=== PATIENT | male | born 1965 | race African-American/Black ===

== ENCOUNTER 2017-09-02 09:04 | Outpatient (CLI) | payer OTHER ==
--- NOTE | 2017-09-02 11:29 | MRI ---
MRI LUMBAR SPINE WITH AND WITHOUT CONTRAST: Technique: Multiplanar, multisequential imaging lumbar spine obtained. History: Back pain, bilateral lower extremity numbness and tingling. Lumbar radiculopathy. Comparison: MRI of lumbar spine 11-15-14, CT lumbar spine performed post myelogram 02-13-16. FINDINGS: There is a transitional vertebrae which has been previously described. This was labelled L5 on the p rior CT. Pedicles screws were in place at L4 and L5 on that exam. Pedicles screws have been removed since the prior exam. Lumbar vertebrae continue to maintain normal height and alignment. Disc spaces are preserved with mild degenerative disc signal seen at the L3-4 level. No evidence of significant disc bulge or protrusion at L1-2 or L2-3. No central canal or for aminal stenosis at these levels. L3-4: Minimal disc bulge. Mild facet arthrosis and hypertrophy. No significant central canal or fora pepe stenosis. L4-5: Minimal listhesis with disc bulge flattening the anterior thecal sac. Facet hypertrophy. No si gnificant central canal stenosis. There is bilateral foraminal stenosis secondary to hypertrophic ch gigi. L5-S1: No significant disc bulge or protrusion. No central canal or foraminal stenosis. IMPRESSION: Pedicle screws have been removed since the prior CT. Mild bulge at L3-4 and L4-5. Bilateral foramina l stenosis at L4-5 due to hypertrophic change. POS: ROMA
== END 2017-09-02 09:05 | disposition home or self-care (01) ==
LOC: TBSIIMAG 09:04
PROVIDERS: ATTEND Neurological Surgery
DX: M54.16 Radiculopathy, lumbar region (principal); M48.061 Spinal stenosis, lumbar region without neurogenic claudication
CPT/HCPCS: 72158

== ENCOUNTER 2018-08-11 14:46 | Outpatient (CLI) | payer OTHER ==
--- NOTE | 2018-08-11 18:10 | RAD ---
LEFT HIP 2 VIEWS: Date 08/11/18 HISTORY: Pain. Cramping. COMPARISON: None. FINDINGS: Visualized portion of the left thigh is unremarkable. No acute fracture or malalignment. IMPRESSION: No acute fracture or malalignment. POS: C
--- NOTE | 2018-08-11 18:17 | RAD ---
RIGHT HIP TWO VIEWS: History: Pain. M54.5 Comparison: None. FINDINGS: No fracture. No malalignment. Obturator rings are intact. There is ossification along the right iliac wing. IMPRESSION: No acute abnormality. POS: C
== END 2018-08-11 14:47 | disposition home or self-care (01) ==
LOC: TBSIIMAG 14:46
PROVIDERS: ATTEND Neurological Surgery
DX: M54.5 Low back pain (principal)

== ENCOUNTER 2020-02-01 09:05 | Outpatient (CLI) | payer OTHER ==
--- NOTE | 2020-02-01 12:19 | MRI ---
MRI OF THE LUMBAR SPINE WITH AND WITHOUT CONTRAST: INDICATION: Lumbar radiculopathy. Bilateral leg pain. History of prior lumbar surgery. COMPARISON: Comparison is made to MRI lumbar spine dated 09/02/2017. FINDINGS: Vertebral bodies maintain height. 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 There is small disk space at the T11-T12 level. L5 is transitional. Disk space narrowing at L5-S1 is again noted and stable. There is a grade I anterolisthesis at L4-5 seen today which has progressed since the prior study. Th ere is a diffuse bulge at L4-5 mildly flattening the anterior thecal sac. There is prominent facet h ypertrophy at L4-5. There is posterior epidural fat throughout the lumbar spine but most prominent a t L3-4 and L4-5 consistent with mild epidural lipomatosis. This is especially prominent in the anter ior spinal canal on the left at L4. This is stable in appearance. Mild central canal stenosis at L4-5. There is bilateral foraminal stenosis at L4-5 which was present previously but appears slightly more pronounced today due to the increased anterolisthesis. L1-2: No significant disk bulge or protrusion. No central canal or foraminal stenosis. L2-3: No disk bulge or protrusion. Mild facet hypertrophy. No central canal or foraminal stenosis. L3-4: No significant disk bulge. Mild to moderate facet hypertrophy. No central canal or foraminal stenosis. 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 Recommend correlation with history of prior nephrectomy. IMPRESSION: Significant findings at L4-5 as described above. L5 is transitional as noted. There is increased an terolisthesis at L4-5 with broad-based disk bulge and mild foraminal stenosis at this level as descri bed above. POS: AGW
[2020-02-01] MEDS ORDERED: Magnevist 469MG/ML 20 ML VIAL ONE (13:51)
== END 2020-02-01 09:06 | disposition home or self-care (01) ==
LOC: TBSIIMAG 09:05
PROVIDERS: ATTEND Neurological Surgery
DX: M51.16 Intervertebral disc disorders with radiculopathy, lumbar region (principal); M48.061 Spinal stenosis, lumbar region without neurogenic claudication; M43.16 Spondylolisthesis, lumbar region
CPT/HCPCS: 72158; A9579

== ENCOUNTER 2020-05-01 06:51 | Outpatient (CLI) | payer OTHER ==
[2020-05-01 12:26] LABS: Anion Gap 15 mmol/L (10-20); BUN (Urea Nitrogen) 13 mg/dL (8.4-25.7); Calc. Creatinine Clearance 0 mL/min (70-130); Calcium 9.5 mg/dL (7.8-10.44); Carbon Dioxide 21 mmol/L (22-29); Chloride 107 mmol/L (98-107); Estimated GFR-MDRD 77; Glucose 107 mg/dL (70-105); Potassium 4.3 mmol/L (3.5-5.1); Sodium 139 mmol/L (136-145)
[2020-05-02 12:09] LABS: SARS-CoV-2 MS2 Positive; SARS-CoV-2 N Gene Negative; SARS-CoV-2 S Gene Negative; SARS-CoV-2 orf1ab Negative
== END 2020-05-01 06:52 | disposition home or self-care (01) ==
LOC: LABBT 06:51
PROVIDERS: ATTEND Neurological Surgery
DX: Z01.812 Encounter for preprocedural laboratory examination (principal); Z11.59 Encounter for screening for other viral diseases; M43.16 Spondylolisthesis, lumbar region
CPT/HCPCS: 80048; 87635; U0003

== ENCOUNTER 2020-05-03 06:18 | Day surgery (SDC) | payer OTHER ==
[2020-04-29 14:08] VITALS: BMI 31.1
--- NOTE | 2020-05-02 13:19 | HP ---
HISTORY OF PRESENT ILLNESS: Mr. Serna is a 55-year-old man, known to us for prior back surgeries and evaluations of ongoing back pain with lumbar radiculopathies, who more recently reported a CT and MRI scan, which revealed progressive spondylolisthesis of L4 upon L5 paired with severe pain that radiated in a fashion that best fits in L4 pattern with some components of L5. He has treated this exhaustively with medications and injections with Dr. Bunch as well as physical therapy in the past. None of these things were provided him any substantial relief. He is here now to discuss potential operative management. PAST MEDICAL HISTORY: Includes neuropathy. PAST SURGICAL HISTORY: Multiple lumbar spinal surgeries including fusion and hardware removal. Examination deferred for [facility] telehealth visit. ASSESSMENT: Lumbar spondylolisthesis, lumbar radiculopathy, and degenerative disk disease. PLAN: Dr. Pérez met with the patient, reviewed his imaging, and advocated for reoperation, instrumentation and fusion at L4-5. He explained to the patient the risks, benefits, and alternatives to the procedure. The patient expressed understanding and elected to move forward with surgery as discussed. I do believe that the patient is mentally competent and capable of making medical decisions for himself. We will move forward with surgery as planned. Job ID: [id number]
[2020-05-03] MEDS ORDERED: Bupivacaine PF 0.5% 30 ML VIAL ONE (09:32)
[2020-05-03] MEDS ORDERED: Thrombin 5000 UNITS/5 ML VIAL ONE (09:32)
[2020-05-03] MEDS ORDERED: EPINEPHrine 1 MG/ML AMP ONE (09:32)
[2020-05-03] MEDS ORDERED: Clindamycin/D5W 900 mg/50 ml Premix Bag ONE (09:37)
[2020-05-03] MEDS ORDERED: Levofloxacin 500 mg/D5W 100 ml Premix Bag ONE (09:37)
[2020-05-03] MEDS ORDERED: Fentanyl 100 MCG/2 ML VIAL ONE (10:17)
== END 2020-05-03 11:04 | disposition home or self-care (01) ==
LOC: SDC 06:18
PROVIDERS: ATTEND Neurological Surgery
DX: M43.16 Spondylolisthesis, lumbar region (principal); M51.16 Intervertebral disc disorders with radiculopathy, lumbar region; G62.9 Polyneuropathy, unspecified; I10 Essential (primary) hypertension; E78.5 Hyperlipidemia, unspecified; K21.9 Gastro-esophageal reflux disease without esophagitis; M19.90 Unspecified osteoarthritis, unspecified site; F17.210 Nicotine dependence, cigarettes, uncomplicated; J45.909 Unspecified asthma, uncomplicated; Z53.8 Procedure and treatment not carried out for other reasons; Z85.528 Personal history of other malignant neoplasm of kidney; Z79.52 Long term (current) use of systemic steroids; Z79.82 Long term (current) use of aspirin; Z79.899 Other long term (current) drug therapy; Z88.0 Allergy status to penicillin; Z88.1 Allergy status to other antibiotic agents; Z88.6 Allergy status to analgesic agent; Z91.041 Radiographic dye allergy status; Z90.5 Acquired absence of kidney; Z98.1 Arthrodesis status
CPT/HCPCS: 93005; 93010; C1713; J0171; J0690; J1956; J3010; J3490; S0020

== ENCOUNTER 2021-07-18 10:49 | Outpatient (CLI) | payer OTHER ==
[2021-07-18 13:28] LABS: Hemoglobin 12.4 g/dL (13.5-17.5); Mean Corpuscular HGB CONC 32.3 g/dL (32.0-36.0); Mean Corpuscular Hemoglobin 30.5 pg (27.0-33.0); Mean Corpuscular Volume 94.6 fl (81.2-95.1); Mean Platelet Volume 10.6 fl (7.4-10.4); Platelet Count 236 10x3/uL (150-450); RBC Distribution Width 16.1 % (11.5-14.5); Red Blood Cell (RBC) Count 4.06 10x6/uL (4.32-5.72); White Blood Cell (WBC) Count 14.1 10x3/uL (3.5-10.5)
[2021-07-18 13:35] LABS: Anion Gap 15 mmol/L (10-20); BUN (Urea Nitrogen) 13 mg/dL (8.4-25.7); Calc. Creatinine Clearance 0 mL/min (70-130); Calcium 10.1 mg/dL (7.8-10.44); Carbon Dioxide 19 mmol/L (22-29); Chloride 111 mmol/L (98-107); Glucose 98 mg/dL (70-105); Potassium 5.1 mmol/L (3.5-5.1); Sodium 140 mmol/L (136-145)
[2021-07-20 00:14] LABS: SARS-CoV-2 PCR by NAA Not Detected (NotDetected)
== END 2021-07-18 10:50 | disposition home or self-care (01) ==
LOC: LABBT 10:49
PROVIDERS: ATTEND Neurological Surgery
DX: Z01.818 Encounter for other preprocedural examination (principal); Z20.822 Contact with and (suspected) exposure to COVID-19
CPT/HCPCS: 80048; 85027; 93005; 93010; U0003; U0005

== ENCOUNTER 2021-07-23 07:25 | Day surgery (SDC) | payer OTHER ==
[2021-07-22 10:54] VITALS: BMI 33.1
[2021-07-23] MEDS ORDERED: Bupivacaine PF 0.5% 30 ML VIAL ONE (08:34)
[2021-07-23] MEDS ORDERED: EPINEPHrine 1 MG/ML AMP ONE (08:34)
[2021-07-23] MEDS ORDERED: HYDROmorphone 0.5 MG/0.5 ML SYRINGE ONE (08:45)
[2021-07-23] MEDS ORDERED: Vancomycin 1.5 GRAM/300 ML BAG 1.5 GM in Premix Bag 1 BAG IVPB SCH (08:45)
[2021-07-23] MEDS ORDERED: Fentanyl 100 MCG/2 ML VIAL ONE ×2 (08:45→09:02)
[2021-07-23] MEDS ORDERED: Midazolam HCl 2 mg/2 ml Vial ONE (08:49)
== END 2021-07-23 10:00 | disposition home or self-care (01) ==
LOC: SDC 07:25
PROVIDERS: ATTEND Neurological Surgery
DX: M43.16 Spondylolisthesis, lumbar region (principal); E78.5 Hyperlipidemia, unspecified; G89.29 Other chronic pain; M19.90 Unspecified osteoarthritis, unspecified site; J45.909 Unspecified asthma, uncomplicated; I25.10 Atherosclerotic heart disease of native coronary artery without angina pectoris; I10 Essential (primary) hypertension; Z53.9 Procedure and treatment not carried out, unspecified reason; Z79.82 Long term (current) use of aspirin; Z79.84 Long term (current) use of oral hypoglycemic drugs; Z88.0 Allergy status to penicillin; Z88.1 Allergy status to other antibiotic agents; Z88.2 Allergy status to sulfonamides; Z88.6 Allergy status to analgesic agent; Z91.041 Radiographic dye allergy status; Z98.1 Arthrodesis status
CPT/HCPCS: J0171; J1170; J2250; J3010; J3370; S0020

== ENCOUNTER → 2021-07-25 | Day surgery (SDC) | payer OTHER ==
[~2021-07-25] MED LIST: Bupivacaine PF 0.5% 30 ML VIAL ONE; EPINEPHrine 1 MG/ML AMP ONE; Fentanyl 100 MCG/2 ML VIAL ONE; HYDROcodone/Acetaminophen 5/325 mg Tablet ONE; Levofloxacin 500 mg/D5W 100 ml Premix Bag ONE; Lidocaine 1% PF 5 ML VIAL ONE; Midazolam HCl 2 mg/2 ml Vial ONE; PHENYLEPHRINE-NS 100 MCG/ML 10 ML SYRINGE ONE; PROPOFOL 200 MG/20 ML VIAL ONE; Phenylephrine 10 MG/ML VIAL ONE; Rocuronium Bromide 10 MG/ML (10ML VIAL) ONE; SUGAMMADEX SODIUM 200 MG/2 ML VIAL ONE; Tamsulosin HCl 0.4 MG CAP ONE
== END ==
LOC: SDC 06:31
PROVIDERS: ATTEND Neurological Surgery
PROC: 0SG0071 Fusion of Lumbar Vertebral Joint with Autologous Tissue Substitute, Posterior Approach, Posterior Column, Open Approach (ICD-10-PCS; principal; 2021-07-25)
DX: M54.16 Radiculopathy, lumbar region (principal); M53.2X6 Spinal instabilities, lumbar region; M43.16 Spondylolisthesis, lumbar region; E78.5 Hyperlipidemia, unspecified; G89.29 Other chronic pain; M19.90 Unspecified osteoarthritis, unspecified site; J45.909 Unspecified asthma, uncomplicated; I25.10 Atherosclerotic heart disease of native coronary artery without angina pectoris; I10 Essential (primary) hypertension; Z79.84 Long term (current) use of oral hypoglycemic drugs; Z88.0 Allergy status to penicillin; Z88.1 Allergy status to other antibiotic agents; Z88.2 Allergy status to sulfonamides; Z88.8 Allergy status to other drugs, medicaments and biological substances; Z91.041 Radiographic dye allergy status; Z98.1 Arthrodesis status
CPT/HCPCS: 76000; C1713; C1768; J0171; J1956; J2250; J2370; J2704; J3010; S0020